=== PATIENT | female | born 1970 | race Caucasian/White ===

== ENCOUNTER 2019-07-21 16:07 | Emergency (ER) | payer OTHER ==
[~2019-07-21] VITALS: Ht 160 cm; Wt 100.0 kg
[2019-07-21] MEDS ORDERED: RX-CEPHALEXIN (KEFLEX) 250 MG CAP PPK#4 PO STA (16:19)
[2019-07-21] MEDS ORDERED: RX-MUPIROCIN (BACTROBAN) 2% OINT 22 GM TUBE TOP STA (16:19)
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
[2019-07-21 16:32] VITALS: BP 138/92
== END 2019-07-21 16:34 | disposition home or self-care (01) ==
LOC: ER 16:10
DX: T21.22XA Burn of second degree of abdominal wall, initial encounter (principal); T31.0 Burns involving less than 10% of body surface; X12.XXXA Contact with other hot fluids, initial encounter
CPT/HCPCS: 99283

== ENCOUNTER 2019-07-24 10:44 | Emergency (ER) | payer OTHER ==
[~2019-07-24] VITALS: Ht 160 cm; Wt 105.0 kg
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
[2019-07-24] MEDS ORDERED: SILV20CR14 TP (11:24)
[2019-07-24 11:54] VITALS: BP 145/78
== END 2019-07-24 11:53 | disposition home or self-care (01) ==
LOC: EDUNIT# 10:44 → ER 10:44
DX: T21.22XD Burn of second degree of abdominal wall, subsequent encounter (principal); X11.8XXA Contact with other hot tap-water, initial encounter; Y92.59 Other trade areas as the place of occurrence of the external cause
CPT/HCPCS: 99282